=== PATIENT | male | born 1980 | race African-American/Black ===

== ENCOUNTER 2017-06-03 20:38 | Emergency (ER) | payer MEDICAID ==
[~2017-06-03] VITALS: Ht 180.3 cm; Wt 104.3 kg
[2017-06-03 21:03] VITALS: BP 126/76
[2017-06-04] MEDS ORDERED: IBUPROFEN 600 MG TAB PO ONE
== END 2017-06-04 | disposition home or self-care (01) ==
LOC: ER 20:44
DX: J32.1 Chronic frontal sinusitis (principal); F17.210 Nicotine dependence, cigarettes, uncomplicated
CPT/HCPCS: 70450

== ENCOUNTER 2017-11-11 18:34 | Emergency (ER) | payer MEDICAID ==
[~2017-11-11] VITALS: Ht 180.3 cm; Wt 104.3 kg
[2017-11-11 20:04] VITALS: BP 144/88
[2017-11-11] MEDS ORDERED: KETOROLAC TROMETH 60MG/2ML VIAL IM ONE (20:30)
== END 2017-11-11 20:41 | disposition home or self-care (01) ==
LOC: ER 18:34
DX: M25.562 Pain in left knee (principal); M25.572 Pain in left ankle and joints of left foot; M25.552 Pain in left hip; V43.52XA Car driver injured in collision with other type car in traffic accident, initial encounter; Y93.89 Activity, other specified; Y92.89 Other specified places as the place of occurrence of the external cause; Y99.8 Other external cause status
CPT/HCPCS: 73502; 73562; 73610; 96372; 99284; J1885

== ENCOUNTER 2017-11-23 21:55 | Emergency (ER) | payer MEDICAID ==
[~2017-11-23] VITALS: Ht 180.3 cm; Wt 106.6 kg
[2017-11-23 22:07] VITALS: BP 115/77
== END 2017-11-24 02:05 | disposition home or self-care (01) ==
LOC: ER 21:55
DX: B35.4 Tinea corporis (principal); F17.210 Nicotine dependence, cigarettes, uncomplicated